=== PATIENT | male | born 1940 | race Caucasian/White ===

== ENCOUNTER 2018-03-05 16:05 | Emergency (ER) | payer MEDICARE, SELFPAY ==
[2018-03-05 16:06] VITALS: BP 127/64; PULSE 76; RESP 18; TEMP 36.6; O2SAT 98; BMI 23.8
--- NOTE | 2018-03-05 17:36 | EKG12_ITS ---
Test Reason : WEAKNESS Blood Pressure : / mmHG Vent. Rate : 084 BPM Atrial Rate : 084 BPM P-R Int : 148 ms QRS Dur : 096 ms QT Int : 366 ms P-R-T Axes : 023 007 045 degrees QTc Int : 432 ms Normal sinus rhythm Nonspecific ST abnormality Abnormal ECG Confirmed by IRINA ANDUJAR ([id number]), pictures editor RAJINDER HILLS ([id number] on 03/10/2018 2:42:31 PM Referred By: RACHELL Confirmed By:IRINA ANDUJAR
--- NOTE | 2018-03-05 17:47 | ED.DCSUM_ITS ---
- ER Visit Summary Date of Service: 03/05/18 Chief Complaint: Generalized weakness History of Present Illness: The patient is a 77 M for colon CA with metastases. Patient states since Friday he has had generalized weakness with chills. Says his whole body feels weak. He denies nausea or vomiting. He has chronic loose stools from having an ileostomy. Stools are always dark also because he is on iron for anemia. He is on a blood thinner Eliquis. He denies chest pain. He denies hemoptysis. He denies abdominal pain. Physical Examination: Older male no acute distress. Vital signs are stable. He is afebrile. His pulse ox is 90% on room air. He does not look septic or toxic. He does not look significantly dehydrated. H EENT exam is unremarkable. Moist mucous membranes. Neck nontender no lymphadenopathy. Lungs clear to auscultation bilaterally. Heart regular rhythm no murmur. Rate about 70. Abdomen is soft and nontender. Nondistended. Normal bowel sounds. No peritoneal signs. He does have an ileostomy bag with dark stool. He is moving all 4 extremities. They are neurovascularly intact. Calves are nontender without edema or cords. Neurologically is awake and alert. He is answering questions and following commands. There are no gross focal motor deficits. He has an NIH score of 0. Test Results: CBC shows a white count 11.9. Hemoglobin 10.4 which is actually better than his baseline anemia of 8.6. Electrolytes unremarkable. Sodium of 132. Normal gap. Normal creatinine. Liver enzymes unremarkable except for an alk phos elevated 269. UA normal. Troponin normal. Chest x-ray shows what appears to be a right perihilar mass Emergency Department Course and Treatment: Male with generalized weakness. Treatment Plan: Multiple repeat exams is doing well. I do not have a specific cause of his weakness it may be secondary to his metastatic cancer. He will be discharged home follow-up with Dr. Gomez. 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 Chronic anemia This note was generated with [employer] software. It may contain incorrect words, spelling, and punctuation that were not noted in review of the chart prior to signing ED Disposition - Plan for ED Patient: Chief Complaint: Weakness Referrals: Care Physician,No Primary [Primary Care Provider] -
[2018-03-05 18:30] VITALS: BP 133/74; PULSE 83; RESP 16; O2SAT 99
[2018-03-05 18:35] LABS: AST(SGOT) 93 U/L (15-37); Absolute Lymphocyte Count 0.65 X10^3/ul (0.83-4.51); Absolute Neutrophil Count 10.1 X10^3/uL (2.0-7.7); Alanine Aminotransfer ALT/SGPT 31 U/L (16-61); Albumin, Serum 2.2 g/dL (3.2-5.0); Alkaline Phosphatase 269 U/L (45-117); Basophil# 0.02 X10^3/uL; Basophil% 0.2 % (0-1); Bilirubin, Direct 0.16 mg/dL (0.00-0.30); Eosinophil# 0.01 X10^3/uL; Eosinophils% 0.1 % (0-5); Globulin 4.5 g/dL (2.2-4.2); Hemoglobin 10.4 g/dl (13.0-16.5); Lymphocyte # 0.65 X10^3/ul (4.0); Lymphocyte % 5.5 % (19-41); Mean Corp Hgb Conc 33.5 g/gl (32-36); Mean Corpuscular Hgb 27.4 pg (27.0-32.0); Mean Corpuscular Volume 81.8 fL (80-94); Mean Platelet Vol. 10.2 fl (6.2-12.0); Monocyte# 1.11 X10^3/uL; Monocyte% 9.3 % (0-10); Neutrophil # 10.09 X10^3/uL (2.7-7.7); Neutrophil % 84.6 % (47-70); Platelet Count 230 K/mm3 (150-450); Protein, Total 6.7 g/dL (6.4-8.2); RBC Distribution Width CV 15.9 % (11.6-14.6); RBC Distribution Width SD 47.5 fl (35.1-43.9); Red Blood Count 3.79 M/mm3 (4.6-6.2); White Blood Count 11.9 K/mm3 (4.4-11.0)
[2018-03-05 18:36] LABS: Differential Indicated SCAN CRITERIA MET; POSITIVE COUNT NO; POSITIVE DIFFERENTIAL NO; POSITIVE MORPHOLOGY YES
[2018-03-05 18:40] LABS: Anion Gap 11 (5-15); BUN 15 mg/dL (7-18); BUN/Creat Ratio 13.3 RATIO (10-20); Calcium,Total 8.6 mg/dL (8.5-10.1); Chloride 99 mmol/L (98-107); Creatinine, Serum 1.13 mg/dL (0.70-1.30); EST Glomerular Filtration Rate 67 mL/min (>60); Est Glom Filt Rate - Afr Amer 81 mL/min (>60); Estimated Creatinine Clearance 59.23 ml/min; Glucose 136 mg/dL (74-106); Potassium 3.8 mmol/L (3.5-5.1); Sodium Level 132 mmol/L (136-145)
[2018-03-05 18:55] LABS: Mucous, Urine 0 SEEN /hpf (<or=2+); Red Blood Cells-Urine 0 SEEN /hpf (0-5)
[2018-03-05 19:05] LABS: Platelet Estimate ADEQUATE (ADEQ); Red Cell Morphology NORM C+C NORMAL (NORM C&C)
[2018-03-05 19:15] VITALS: BP 128/59; PULSE 87; RESP 14; O2SAT 97
[2018-03-05 19:19] LABS: Color, Urine Yellow (Yellow); Glucose, Dipstick 100 mg/dl (Normal); Ketone-Dipstick 5 mg/dl (Negative); Leukocyte Esterase-Dipstick 25 /ul (Negative); Nitrite-Dipstick Negative (Negative); Occult Blood-Urine Negative /ul (Negative); Protein-Dipstick 30 mg/dl (Negative); Specific Gravity, Urine 1.015 (1.002-1.030); Urine Bilirubin Dipstick Negative (Negative); Urine Clarity Clear (Clear); Urine Urobilinogen Normal (Normal)
[2018-03-05 19:43] LABS: Bacteria 3+ /hpf (None Seen); Squamous Epithelial Cells - UA 0-5 SEEN /hpf (0-5); White Blood Cells 0-5 SEEN /hpf (0-5)
--- NOTE | 2018-03-05 19:55 | ED.DEP ---
ED Disposition - Plan for ED Patient: Disposition: Home or Assisted Living Chief Complaint: Weakness Instructions: ED Weakness [facility] Referrals: Kenyon Gomez MD [STAFF PHYSICIAN] - As soon as possible Additional Instructions: Call follow-up with Dr. oGmez soon as possible. Return to the ER if you are feeling worse.
[2018-03-05 20:03] VITALS: BP 115/81; PULSE 81; RESP 18; O2SAT 98
== END 2018-03-05 20:04 | disposition home or self-care (01) ==
PROVIDERS: Emergency Provider Emergency Medicine
DX: R53.1 Weakness (principal); D64.9 Anemia, unspecified; C25.9 Malignant neoplasm of pancreas, unspecified; I10 Essential (primary) hypertension; Z79.02 Long term (current) use of antithrombotics/antiplatelets; Z79.899 Other long term (current) drug therapy
CPT/HCPCS: 36591; 71045; 80048; 80076; 81001; 84484; 85025; 93005; 99283; A4216